=== PATIENT | male | born 1990 | race Two or more races ===

== ENCOUNTER 2017-10-21 13:57 | Outpatient (CLI) | payer OTHER | END 2017-10-21 15:39 | disposition home or self-care (01) | LOC: TOM 13:57 → EDBD 13:57 → TOM 14:15 | DX: M25.461 Effusion, right knee (principal) ==

== ENCOUNTER 2017-10-25 10:17 | Outpatient (CLI) | payer OTHER | END 2017-10-25 10:19 | disposition home or self-care (01) | LOC: LAB 10:17 | DX: D64.9 Anemia, unspecified (principal); E88.9 Metabolic disorder, unspecified; D68.8 Other specified coagulation defects; N39.0 Urinary tract infection, site not specified; Z22.322 Carrier or suspected carrier of Methicillin resistant Staphylococcus aureus; E83.42 Hypomagnesemia; E03.9 Hypothyroidism, unspecified; E11.9 Type 2 diabetes mellitus without complications; E55.9 Vitamin D deficiency, unspecified ==

== ENCOUNTER 2017-10-25 13:01 | Outpatient (CLI) | payer OTHER | END 2017-10-25 13:09 | disposition home or self-care (01) | LOC: RAD 13:01 | DX: Z76.89 Persons encountering health services in other specified circumstances (principal) ==

== ENCOUNTER → 2017-10-25 | Outpatient (CLI) | payer OTHER | END | disposition home or self-care (01) | LOC: EKG 10:31 | DX: I49.8 Other specified cardiac arrhythmias (principal) ==

== ENCOUNTER 2017-10-28 07:12 | Day surgery (SDC) | payer OTHER | END 2017-10-28 19:10 | disposition home or self-care (01) | LOC: CIR.AMB 07:12 | DX: S82.141A Displaced bicondylar fracture of right tibia, initial encounter for closed fracture (principal) ==

== ENCOUNTER 2017-11-02 09:18 | Outpatient (CLI) | payer OTHER | END 2017-11-02 09:24 | disposition home or self-care (01) | LOC: RAD 09:18 | DX: S82.191A Other fracture of upper end of right tibia, initial encounter for closed fracture (principal) ==

== ENCOUNTER 2017-11-23 15:23 | Outpatient (CLI) | payer OTHER | END 2017-11-23 16:27 | disposition home or self-care (01) | LOC: RAD 501 15:23 | DX: S82.191D Other fracture of upper end of right tibia, subsequent encounter for closed fracture with routine healing (principal) ==

== ENCOUNTER 2018-02-01 11:57 | Outpatient (CLI) | payer OTHER | END 2018-02-01 13:10 | disposition home or self-care (01) | LOC: RAD 501 11:57 | DX: S82.191D Other fracture of upper end of right tibia, subsequent encounter for closed fracture with routine healing (principal) ==